=== PATIENT | female | born 1975 | race African-American/Black ===

== ENCOUNTER 2023-05-29 08:11 | Inpatient (IN) | payer SELFPAY ==
[2023-05-29 08:52] LABS: #Monocytes 0.3 10x3/uL (0.0-1.1); #Neutrophils 1.3 10x3/uL (1.5-8.4); %Basophils 1.3 % (0.0-2.0); %Lymphocytes 47.2 % (18.0-47.0); %Monocytes 8.5 % (0.0-10.0); %Neutrophils 41.7 % (40.0-75.0); Hematocrit 35.7 % (34.9-44.5); Hemoglobin 12.4 g/dL (12.0-15.5); Mean Corpuscular HGB CONC 34.7 g/dL (32.0-36.0); Mean Corpuscular Hemoglobin 30.8 pg (27.0-33.0); Mean Corpuscular Volume 88.8 fl (81.6-98.3); Mean Platelet Volume 8.7 fl (7.4-10.4); Platelet Count 297 10x3/uL (150-450); Red Blood Cell (RBC) Count 4.02 10x6/uL (3.90-5.03); White Blood Cell (WBC) Count 3.1 10x3/uL (3.5-10.5)
[2023-05-29 08:53] LABS: ALT (SGPT) 12 U/L (8-55); AST (SGOT) 28 U/L (5-34); Albumin 4.4 g/dL (3.5-5.0); Alcohol 94.2 mg/dL (Less than 10); Alkaline Phosphatase 39 U/L (40-110); Anion Gap 21 mmol/L (10-20); BUN (Urea Nitrogen) 9 mg/dL (7.0-18.7); Bilirubin, Total 0.4 mg/dL (0.2-1.2); Calc. Creatinine Clearance 0 mL/min (70-130); Calcium 8.7 mg/dL (7.8-10.44); Carbon Dioxide 22 mmol/L (22-29); Chloride 105 mmol/L (98-107); Estimated GFR 99; Globulin 3.5 g/dL (2.4-3.5); Glucose 118 mg/dL (70-105); Potassium 2.9 mmol/L (3.5-5.1); Protein, Total 7.9 g/dL (6.0-8.3); Sodium 145 mmol/L (136-145)
[2023-05-29 08:57] LABS: Troponin I Less than 0.010 ng/mL (< 0.028)
[2023-05-29 12:11] LABS: Amphetamine Not Detected (NotDetected); Barbiturates Screen Not Detected (NotDetected); Benzodiazepine Screen Not Detected (NotDetected); Cocaine Metabolite Screen Not Detected (NotDetected); Methadone Not Detected (NotDetected); Methamphetamine Not Detected (NotDetected); Opiate Screen Not Detected (NotDetected); Oxycodone Screen Not Detected (NotDetected); Phencyclidine (PCP) Not Detected (NotDetected); THC/Cannabinoid Screen Not Detected (NotDetected); Tricyclic Screen Not Detected (NotDetected)
[2023-05-29] MEDS ORDERED: Iopamidol 370 76% 100 ML VIAL ONE (13:58)
[2023-05-29 15:08] LABS: Pregs Control Background? CLEAR/WHITE (CLR/WHITE); Pregs Control Bar Appear? YES (CONTROL BAR)
[2023-05-29 15:19] LABS: BHCG - Serum POSITIVE (NEGATIVE)
[2023-05-29 17:51] LABS: Bilirubin Neg (Negative); Blood, Urine Negative (Negative); Clarity Clear (Clear); Glucose, Urine (Dipstick) Normal (Negative); Ketone, Urine Negative (Negative); Leukocyte Negative (Negative); Nitrite Negative (Negative); Protein, Urine (Dipstick) 30 mg/dl (Neg-Trace); Urobilinogen Normal mg/dL (Less than 2)
[2023-05-29 17:59] LABS: Bacteria/HPF Rare-Few HPF (None Seen); CAUTI Indications for Culture Alt mental st,lethar; RBC/HPF None Seen HPF (0-3); Squamous Epithelial 0-3 HPF (0-3); Urine Culture Reflex No No; WBC/HPF 0-3 HPF (0-3)
[2023-05-29 20:44] VITALS: BMI 28.7
[2023-05-29] MEDS ORDERED: Calcium Carbonate 500 MG ChewTAB PO PRN (21:58)
[2023-05-29] MEDS ORDERED: Ondansetron PF 4 MG/2 ML Vial IVP PRN (21:58)
[2023-05-29] MEDS ORDERED: Lactated Ringer's 1,000 ML IV SCH (22:00)
[2023-05-29] MEDS ORDERED: Magnesium 2 GM/50 ML(in water) 2 GM in Premix 1 BAG IVPB SCH (22:00)
[2023-05-29] MEDS ORDERED: Promethazine 25 MG TAB PO PRN (22:02)
[2023-05-29] MEDS ORDERED: Carvedilol 12.5 MG TAB PO SCH (22:15)
[2023-05-29] MEDS ORDERED: Potassium Chloride 20 MEQ TAB PO SCH (22:15)
[2023-05-30 03:31] LABS: #Monocytes 0.4 10x3/uL (0.0-1.1); #Neutrophils 2.2 10x3/uL (1.5-8.4); %Basophils 0.4 % (0.0-2.0); %Eosinophils 0.5 % (0.0-6.0); %Lymphocytes 51.9 % (18.0-47.0); %Monocytes 7.8 % (0.0-10.0); %Neutrophils 39.2 % (40.0-75.0); Hemoglobin 10.3 g/dL (12.0-15.5); Mean Corpuscular HGB CONC 35.5 g/dL (32.0-36.0); Mean Corpuscular Hemoglobin 31.4 pg (27.0-33.0); Mean Corpuscular Volume 88.4 fl (81.6-98.3); Platelet Count 232 10x3/uL (150-450); RBC Distribution Width 14.1 % (11.5-14.5); Red Blood Cell (RBC) Count 3.28 10x6/uL (3.90-5.03); White Blood Cell (WBC) Count 5.7 10x3/uL (3.5-10.5)
[2023-05-30 03:44] LABS: Anion Gap 16 mmol/L (10-20); BUN (Urea Nitrogen) 5 mg/dL (7.0-18.7); Calc. Creatinine Clearance 122 mL/min (70-130); Calcium 7.8 mg/dL (7.8-10.44); Carbon Dioxide 23 mmol/L (22-29); Chloride 104 mmol/L (98-107); Estimated GFR 107; Glucose 95 mg/dL (70-105); Lipase 74 U/L (8-78); Magnesium 1.5 mg/dL (1.6-2.6); Potassium 2.7 mmol/L (3.5-5.1); Sodium 140 mmol/L (136-145)
[2023-05-30] MEDS: Acetaminophen 325 MG TAB PO PRN ×2 (07:56→14:45)
[2023-05-30] MEDS: Carvedilol 6.25 MG TAB PO SCH ×2 (07:57→16:22)
[2023-05-30] MEDS: Famotidine 20 MG TAB PO SCH ×2 (07:58→21:04)
[2023-05-30] MEDS: Amlodipine 5 MG TAB PO SCH (07:58)
[2023-05-30] MEDS: Vancomycin HCl 125 MG Capsule PO SCH ×3 (08:20→21:04)
[2023-05-30] MEDS ORDERED: Magnesium 2 GM/50 ML(in water) 2 GM in Premix 1 BAG IVPB SCH (09:00)
[2023-05-30] MEDS ORDERED: Isosorbide Mononitrate 60 MG ER.TAB PO SCH (09:00)
[2023-05-30] MEDS ORDERED: Potassium Chloride 20 MEQ TAB PO SCH (09:00)
[2023-05-30] MEDS ORDERED: Magnesium Sulfate/D5W 1 GM in Premix 1 BAG IVPB SCH (12:00)
[2023-05-30] MEDS: metroNIDAZOLE 500 MG in Premix 1 BAG IVPB SCH ×2 (14:02→21:05)
[2023-05-30] MEDS: Isosorbide Mononitrate 30 MG ER.TAB PO SCH (21:04)
[2023-05-31] MEDS: Vancomycin HCl 125 MG Capsule PO SCH ×4 (02:58→20:58)
[2023-05-31 04:45] LABS: #Eosinphils 0.1 10x3/uL (0.0-0.5); #Monocytes 0.4 10x3/uL (0.0-1.1); %Basophils 0.6 % (0.0-2.0); %Lymphocytes 46.9 % (18.0-47.0); %Monocytes 8.9 % (0.0-10.0); %Neutrophils 42.4 % (40.0-75.0); Hematocrit 28.3 % (34.9-44.5); Hemoglobin 9.6 g/dL (12.0-15.5); Mean Corpuscular HGB CONC 33.9 g/dL (32.0-36.0); Mean Corpuscular Hemoglobin 30.9 pg (27.0-33.0); Mean Platelet Volume 8.8 fl (7.4-10.4); Platelet Count 201 10x3/uL (150-450); RBC Distribution Width 14.1 % (11.5-14.5); Red Blood Cell (RBC) Count 3.11 10x6/uL (3.90-5.03); White Blood Cell (WBC) Count 4.8 10x3/uL (3.5-10.5)
[2023-05-31 05:19] LABS: ALT (SGPT) 8 U/L (8-55); AST (SGOT) 16 U/L (5-34); Albumin 3.5 g/dL (3.5-5.0); Alkaline Phosphatase 33 U/L (40-110); Anion Gap 12 mmol/L (10-20); BUN (Urea Nitrogen) 6 mg/dL (7.0-18.7); Bilirubin, Total 0.5 mg/dL (0.2-1.2); Calc. Creatinine Clearance 122 mL/min (70-130); Calcium 7.7 mg/dL (7.8-10.44); Carbon Dioxide 26 mmol/L (22-29); Chloride 103 mmol/L (98-107); Estimated GFR 107; Globulin 2.7 g/dL (2.4-3.5); Glucose 101 mg/dL (70-105); Protein, Total 6.2 g/dL (6.0-8.3); Sodium 138 mmol/L (136-145)
[2023-05-31 05:23] LABS: Potassium 2.6 mmol/L (3.5-5.1)
[2023-05-31] MEDS: metroNIDAZOLE 500 MG in Premix 1 BAG IVPB SCH ×3 (06:08→21:12)
[2023-05-31] MEDS: Potassium Chloride 20 MEQ TAB PO SCH ×3 (06:10→10:19)
[2023-05-31] MEDS: Amlodipine 5 MG TAB PO SCH (08:12)
[2023-05-31] MEDS: Famotidine 20 MG TAB PO SCH ×2 (08:12→20:58)
[2023-05-31] MEDS: Isosorbide Mononitrate 30 MG ER.TAB PO SCH ×2 (08:12→20:58)
[2023-05-31] MEDS: Carvedilol 6.25 MG TAB PO SCH ×2 (08:12→16:22)
[2023-06-01] MEDS: Vancomycin HCl 125 MG Capsule PO SCH ×4 (03:46→20:05)
[2023-06-01 05:30] LABS: #Eosinphils 0.1 10x3/uL (0.0-0.5); #Monocytes 0.4 10x3/uL (0.0-1.1); #Neutrophils 3.8 10x3/uL (1.5-8.4); %Basophils 0.5 % (0.0-2.0); %Eosinophils 1.3 % (0.0-6.0); %Lymphocytes 22.2 % (18.0-47.0); %Monocytes 6.5 % (0.0-10.0); Hematocrit 28.1 % (34.9-44.5); Hemoglobin 9.7 g/dL (12.0-15.5); Mean Corpuscular HGB CONC 34.5 g/dL (32.0-36.0); Mean Corpuscular Hemoglobin 31.3 pg (27.0-33.0); Mean Corpuscular Volume 90.6 fl (81.6-98.3); Mean Platelet Volume 9.2 fl (7.4-10.4); Platelet Count 214 10x3/uL (150-450); RBC Distribution Width 13.7 % (11.5-14.5); White Blood Cell (WBC) Count 5.6 10x3/uL (3.5-10.5)
[2023-06-01 05:38] LABS: Anion Gap 13 mmol/L (10-20); BUN (Urea Nitrogen) 6 mg/dL (7.0-18.7); Calc. Creatinine Clearance 132 mL/min (70-130); Calcium 7.9 mg/dL (7.8-10.44); Carbon Dioxide 23 mmol/L (22-29); Chloride 104 mmol/L (98-107); Estimated GFR 109; Glucose 99 mg/dL (70-105); Potassium 3.3 mmol/L (3.5-5.1); Sodium 137 mmol/L (136-145)
[2023-06-01] MEDS: metroNIDAZOLE 500 MG in Premix 1 BAG IVPB SCH ×3 (06:06→21:30)
[2023-06-01] MEDS: Amlodipine 5 MG TAB PO SCH (07:59)
[2023-06-01] MEDS: Carvedilol 6.25 MG TAB PO SCH ×2 (07:59→17:48)
[2023-06-01] MEDS: Famotidine 20 MG TAB PO SCH ×2 (07:59→20:05)
[2023-06-01] MEDS: Isosorbide Mononitrate 30 MG ER.TAB PO SCH ×2 (07:59→20:05)
[2023-06-01] MEDS ORDERED: Loperamide HCl 2 MG CAP PO PRN (17:16)
[2023-06-01] MEDS: Acetaminophen 325 MG TAB PO PRN (21:29)
[2023-06-02] MEDS: Vancomycin HCl 125 MG Capsule PO SCH ×2 (02:20→07:52)
[2023-06-02 05:05] LABS: Anion Gap 13 mmol/L (10-20); BUN (Urea Nitrogen) 6 mg/dL (7.0-18.7); Calc. Creatinine Clearance 130 mL/min (70-130); Calcium 8.6 mg/dL (7.8-10.44); Carbon Dioxide 24 mmol/L (22-29); Chloride 105 mmol/L (98-107); Estimated GFR 109; Glucose 110 mg/dL (70-105); Potassium 3.3 mmol/L (3.5-5.1); Sodium 139 mmol/L (136-145)
[2023-06-02 05:51] VITALS: TEMP 98.1
[2023-06-02] MEDS: metroNIDAZOLE 500 MG in Premix 1 BAG IVPB SCH (05:51)
[2023-06-02] MEDS: Amlodipine 5 MG TAB PO SCH (07:52)
[2023-06-02 07:53] VITALS: BP 152/90
[2023-06-02] MEDS: Carvedilol 6.25 MG TAB PO SCH (07:53)
[2023-06-02] MEDS: Famotidine 20 MG TAB PO SCH (07:53)
[2023-06-02] MEDS: Isosorbide Mononitrate 30 MG ER.TAB PO SCH (07:53)
== END 2023-06-02 11:22 | disposition home or self-care (01) | DRG 373 ==
LOC: CSHERS 08:11 → CSHTELE 17:13 → INTOOBSV 17:13 → OBSVTOIN 05-30 08:58
PROVIDERS: ADMIT Hospitalist; ATTEND Hospitalist
DX: A04.72 Enterocolitis due to Clostridium difficile, not specified as recurrent (principal); I10 Essential (primary) hypertension; E11.9 Type 2 diabetes mellitus without complications; F41.9 Anxiety disorder, unspecified; E87.6 Hypokalemia; E86.0 Dehydration; F10.10 Alcohol abuse, uncomplicated; E83.42 Hypomagnesemia; Z90.710 Acquired absence of both cervix and uterus; Z88.0 Allergy status to penicillin; Z88.6 Allergy status to analgesic agent; Z88.8 Allergy status to other drugs, medicaments and biological substances; Z88.5 Allergy status to narcotic agent; Z79.899 Other long term (current) drug therapy; Z98.890 Other specified postprocedural states; Z82.49 Family history of ischemic heart disease and other diseases of the circulatory system
CPT/HCPCS: 36415; 36416; 51701; 70450; 71275; 76856; 80048; 80053; 80306; 80307; 81001; 83690; 83735; 84443; 84484; 84702; 84703; 85025; 87324; 87449; 93005; 96360; 96361; 96372; 96374; G0378; J1650; J3475; J7120; Q9967

== ENCOUNTER 2023-07-12 08:11 | Emergency (ER) | payer SELFPAY ==
[2023-07-12 08:58] LABS: #Basophils 0.1 10x3/uL (0.0-0.2); #Monocytes 0.4 10x3/uL (0.0-1.1); #Neutrophils 1.3 10x3/uL (1.5-8.4); %Basophils 1.2 % (0.0-2.0); %Eosinophils 0.7 % (0.0-6.0); %Lymphocytes 57.6 % (18.0-47.0); %Neutrophils 31.3 % (40.0-75.0); Hematocrit 35.5 % (34.9-44.5); Hemoglobin 12.5 g/dL (12.0-15.5); Mean Corpuscular HGB CONC 35.2 g/dL (32.0-36.0); Mean Corpuscular Hemoglobin 30.9 pg (27.0-33.0); Mean Corpuscular Volume 87.9 fl (81.6-98.3); Mean Platelet Volume 8.9 fl (7.4-10.4); Platelet Count 335 10x3/uL (150-450); RBC Distribution Width 14.8 % (11.5-14.5); Red Blood Cell (RBC) Count 4.04 10x6/uL (3.90-5.03)
[2023-07-12 09:21] LABS: ALT (SGPT) 16 U/L (8-55); AST (SGOT) 24 U/L (5-34); Albumin 4.7 g/dL (3.5-5.0); Alkaline Phosphatase 47 U/L (40-110); Anion Gap 20 mmol/L (10-20); BUN (Urea Nitrogen) 6 mg/dL (7.0-18.7); Bilirubin, Total 0.5 mg/dL (0.2-1.2); Calc. Creatinine Clearance 0 mL/min (70-130); Calcium 9.5 mg/dL (7.8-10.44); Carbon Dioxide 23 mmol/L (22-29); Chloride 106 mmol/L (98-107); Estimated GFR 92; Globulin 3.7 g/dL (2.4-3.5); Glucose 112 mg/dL (70-105); Magnesium 1.6 mg/dL (1.6-2.6); Potassium 3.1 mmol/L (3.5-5.1); Protein, Total 8.4 g/dL (6.0-8.3)
[2023-07-12] MEDS ORDERED: Ketorolac Tromethamine 30 MG (1 mL) VIAL ONE (09:24)
[2023-07-12 09:31] LABS: Sodium 146 mmol/L (136-145)
[2023-07-12] MEDS ORDERED: Potassium Chloride 20 MEQ (100 mL) BAG ONE (09:42)
[2023-07-12] MEDS ORDERED: Potassium Chloride 20 MEQ TAB ONE (09:42)
[2023-07-12 09:46] LABS: Acetaminophen Less than 10 mcg/mL (10.0-30.0); Alcohol 161.6 mg/dL (Less than 10); Salicylate Less than 8.0 mg/dL (15.0-30.0)
[2023-07-12] MEDS ORDERED: Ondansetron PF 4 MG/2 ML Vial ONE (09:46)
[2023-07-12 10:40] LABS: Bilirubin Neg (Negative); Blood, Urine Negative (Negative); Clarity Clear (Clear); Glucose, Urine (Dipstick) Normal (Negative); Ketone, Urine Negative (Negative); Leukocyte Negative (Negative); Nitrite Negative (Negative); Protein, Urine (Dipstick) 30 mg/dl (Neg-Trace); Specific Gravity, Urine 1.015 (1.005-1.030); Urobilinogen Normal mg/dL (Less than 2)
[2023-07-12 10:50] LABS: Amphetamine Not Detected (NotDetected); Barbiturates Screen Not Detected (NotDetected); Benzodiazepine Screen Not Detected (NotDetected); Cocaine Metabolite Screen Not Detected (NotDetected); Methadone Not Detected (NotDetected); Methamphetamine Not Detected (NotDetected); Opiate Screen Not Detected (NotDetected); Oxycodone Screen Not Detected (NotDetected); Phencyclidine (PCP) Not Detected (NotDetected); THC/Cannabinoid Screen Not Detected (NotDetected); Tricyclic Screen Not Detected (NotDetected)
[2023-07-12 11:11] LABS: Bacteria/HPF Rare-Few HPF (None Seen); CAUTI Indications for Culture < 2yrs of age; RBC/HPF 0-3 HPF (0-3); Squamous Epithelial 0-3 HPF (0-3); Urine Culture Reflex Yes Yes; WBC/HPF 0-3 HPF (0-3)
== END 2023-07-12 17:41 | disposition home or self-care (01) ==
LOC: CSHERS 08:11
DX: F10.129 Alcohol abuse with intoxication, unspecified (principal); E11.9 Type 2 diabetes mellitus without complications; K21.9 Gastro-esophageal reflux disease without esophagitis; E78.5 Hyperlipidemia, unspecified; I10 Essential (primary) hypertension
CPT/HCPCS: 36416; 80053; 80306; 80307; 81001; 83735; 85025; 87077; 87086; 93005; 96374; 96375; J1885; J2405; J3480